=== PATIENT | male | born 1955 | race Caucasian/White ===

== ENCOUNTER 2018-02-13 10:50 | Emergency (ER) | payer BC ==
[2018-02-13] MEDS ORDERED: SODIUM CHLORIDE 0.9% 1,000 ML IV STA (11:12)
--- NOTE | 2018-02-13 11:15 | ED ---
General Adult HPI - General Chief complaint: Arrhythmia/Palpitations Stated complaint: V tach Time Seen by Provider: 02/13/18 11:00 Source: patient, RN notes reviewed Mode of arrival: wheelchair Limitations: no limitations - History of Present Illness Initial comments: Patient 62-year-old male presented to the emergency room today with a chief complaint of feeling lightheaded and dizzy and and palpitations. Patient does admit to a history of this morning feeling a little lightheaded. States that he was just doing some housework cleaning. States began feeling some palpitations. He doesn't that he has a defibrillator. Sees a layout designer through [facility]. States called the office and they had him send a interrogation of his defibrillator to them and was told that he was in V. tach. Was advised that he should come to the hospital. Patient states that the palpitations that he was feeling have improved she'll feel a little lightheaded at this time. Denies any complaints symptoms. States his defibrillator has not gone off.Patient denies any recent fever, chills, shortness of breath, chest pain, back pain, abdominal pain, nausea or vomiting, numbness or tingling , dysuria or hematuria, constipation or diarrhea, headaches or visual changes, or any other complaints. - Related Data Home Medications Medication Instructions Recorded Confirmed Amiodarone [Cordarone] 200 mg PO DAILY 02/13/18 02/13/18 Apixaban [Eliquis] 5 mg PO BID 02/13/18 02/13/18 Aspirin 81 mg PO DAILY 02/13/18 02/13/18 Carvedilol [Coreg] 6.25 mg PO BID 02/13/18 02/13/18 Cefdinir [Cefdinir] 300 mg PO Q12H 02/13/18 02/13/18 Lisinopril [Zestril] 10 mg PO DAILY 02/13/18 02/13/18 Rosuvastatin Calcium [Rosuvastatin 20 mg PO DAILY 02/13/18 02/13/18 Calcium] Spironolactone [Aldactone] 12.5 mg PO DAILY 02/13/18 02/13/18 guaiFENesin SYRUP 100MG/5ML 300 mg PO Q6H PRN 02/13/18 02/13/18 [Robitussin] Allergies Allergy/AdvReac Type Severity Reaction Status Date / Time Penicillins Allergy Unknown Verified 02/13/18 11:57 Review of Systems ROS Statement: Those systems with pertinent positive or pertinent negative responses have been documented in the HPI. ROS Other: All systems not noted in ROS Statement are negative. Past Medical History History of Any Multi-Drug Resistant Organisms: None Reported Past Surgical History: AICD Past Psychological History: No Psychological Hx Reported Smoking Status: Never smoker Past Alcohol Use History: None Reported Past Drug Use History: None Reported General Exam - General Exam Comments Initial Comments: General: The patient is awake and alert, in no distress, and does not appear acutely ill. Eye: Pupils are equal, round and reactive to light, extra-ocular movements are intact. No nystagmus. There is normal conjunctiva bilaterally. No signs of icterus. Ears, nose, mouth and throat: There are moist mucous membranes and no oral lesions. Neck: The neck is supple, there is no tenderness or JVD. Cardiovascular: There is a regular rate and rhythm. No murmur, rub or gallop is appreciated. Respiratory: Lungs are clear to auscultation, respirations are non-labored, breath sounds are equal. No wheezes, stridor, rales, or rhonchi. Musculoskeletal: Normal ROM, no tenderness. Strength 5/5. Sensation intact. Pulses equal bilaterally 2+. Neurological: A&O x 3. CN II-XII intact, There are no obvious motor or sensory deficits. Coordination appears grossly intact. Speech is normal. Skin: Skin is warm and dry and no rashes or lesions are noted. Psychiatric: Cooperative, appropriate mood & affect, normal judgment. Limitations: no limitations Course Vital Signs 02/13/18 02/13/18 02/13/18 10:53 11:19 12:50 Temperature 98.0 F Pulse Rate 90 94 Respiratory 20 20 20 Rate Blood Pressure 134/72 127/78 O2 Sat by Pulse 98 99 98 Oximetry 02/13/18 15:12 Temperature Pulse Rate 110 H Respiratory 20 Rate Blood Pressure 133/80 O2 Sat by Pulse 97 Oximetry EKG Findings - EKG Comments: EKG Findings:: Patient's initial EKG performed at 1102:. Shows sinus rhythm with occasional PVCs at 100 bpm. SD interval is 146. QRS 162. QT/QTc is 426/ 59. Rhythm consistent with nonsustained VT. Second EKG performed at 1354 shows sinus rhythm at 111 bpm. QRS is 162. QT/QTC 356/484. EKG shows runs of nonsustained V. tach Medical Decision Making - Medical Decision Making Patient 62-year-old male presented to the emergency room feeling lightheaded earlier today. Patient does admit to some heart palpitations. Patient has a history of unsustained V. tach. She recently was admitted for influenza and bronchitis had episodes of unsustained V. tach had medications changed was doing well until this morning. Patient presents here to the emergency room. Patient's been asymptomatic he states occasionally feels palpitations. Patient' s EKG has been reviewed and does show undisplaced is staying rhythm of V. tach. Patient labs been reviewed are unremarkable. Chest x-rays negative. Case discussed with on-call radiologist, Dr. Tamayo who recommends admission due to patient being symptomatic at this time. Patient states he would prefer being transferred to [facility] as this is where all of his medical history and layout designer are at. 1406: Discussed case with [facility] nurse Ramsey at this time about transfer. She is going to try to work on a direct admit that she will call his back. 1415: Case discussed with layout designer [facility] Dr. Rehman who will accept a direct admission. Patient is currently awaiting a bed at this time. 1725: [facility] has called back. They do have a room available for the patient. Patient will be transferred by EMS. - Lab Data Result diagrams: 02/13/18 11:10 02/13/18 11:10 Lab Results 02/13/18 02/13/18 02/13/18 Range/Units 11:10 11:10 11:10 WBC 7.3 (3.8-10.6) k/uL RBC 4.51 (4.30-5.90) m/uL Hgb 13.4 (13.0-17.5) gm/dL Hct 38.7 L (39.0-53.0) % MCV 85.8 (80.0-100.0) fL MCH 29.7 (25.0-35.0) pg MCHC 34.7 (31.0-37.0) g/dL RDW 12.6 (11.5-15.5) % Plt Count 361 (150-450) k/uL Neutrophils % 69 % Lymphocytes % 21 % Monocytes % 7 % Eosinophils % 1 % Basophils % 0 % Neutrophils # 5.0 (1.3-7.7) k/uL Lymphocytes # 1.5 (1.0-4.8) k/uL Monocytes # 0.5 (0-1.0) k/uL Eosinophils # 0.1 (0-0.7) k/uL Basophils # 0.0 (0-0.2) k/uL PT (9.0-12.0) sec INR (<1.2) APTT (22.0-30.0) sec Sodium 140 (137-145) mmol/L Potassium 4.4 (3.5-5.1) mmol/L Chloride 105 (98-107) mmol/L Carbon Dioxide 22 (22-30) mmol/L Anion Gap 13 mmol/L BUN 13 (9-20) mg/dL Creatinine 0.78 (0.66-1.25) mg/dL Est GFR (CKD-EPI)AfAm >90 (>60 ml/min/1.73 sqM) Est GFR (CKD-EPI)NonAf >90 (>60 ml/min/1.73 sqM) Glucose 136 H (74-99) mg/dL Calcium 9.2 (8.4-10.2) mg/dL Magnesium 1.9 (1.6-2.3) mg/dL Total Bilirubin 0.5 (0.2-1.3) mg/dL AST 21 (17-59) U/L ALT 31 (21-72) U/L Alkaline Phosphatase 55 (38-126) U/L Total Creatine Kinase 32 L (55-170) U/L CK-MB (CK-2) 0.7 (0.0-2.4) ng/mL CK-MB (CK-2) Rel Index 2.2 Troponin I <0.012 (0.000-0.034) ng/mL Total Protein 6.4 (6.3-8.2) g/dL Albumin 3.7 (3.5-5.0) g/dL 02/13/18 Range/Units 11:10 WBC (3.8-10.6) k/uL RBC (4.30-5.90) m/uL Hgb (13.0-17.5) gm/dL Hct (39.0-53.0) % MCV (80.0-100.0) fL MCH (25.0-35.0) pg MCHC (31.0-37.0) g/dL RDW (11.5-15.5) % Plt Count (150-450) k/uL Neutrophils % % Lymphocytes % % Monocytes % % Eosinophils % % Basophils % % Neutrophils # (1.3-7.7) k/uL Lymphocytes # (1.0-4.8) k/uL Monocytes # (0-1.0) k/uL Eosinophils # (0-0.7) k/uL Basophils # (0-0.2) k/uL PT 10.9 (9.0-12.0) sec INR 1.1 (<1.2) APTT 26.3 (22.0-30.0) sec Sodium (137-145) mmol/L Potassium (3.5-5.1) mmol/L Chloride (98-107) mmol/L Carbon Dioxide (22-30) mmol/L Anion Gap mmol/L BUN (9-20) mg/dL Creatinine (0.66-1.25) mg/dL Est GFR (CKD-EPI)AfAm (>60 ml/min/1.73 sqM) Est GFR (CKD-EPI)NonAf (>60 ml/min/1.73 sqM) Glucose (74-99) mg/dL Calcium (8.4-10.2) mg/dL Magnesium (1.6-2.3) mg/dL Total Bilirubin (0.2-1.3) mg/dL AST (17-59) U/L ALT (21-72) U/L Alkaline Phosphatase (38-126) U/L Total Creatine Kinase (55-170) U/L CK-MB (CK-2) (0.0-2.4) ng/mL CK-MB (CK-2) Rel Index Troponin I (0.000-0.034) ng/mL Total Protein (6.3-8.2) g/dL Albumin (3.5-5.0) g/dL Disposition Clinical Impression: Nonsustained ventricular tachycardia Disposition: OTHER INSTITUTION NOT DEFINED Condition: Stable Referrals: Umer Alanis MD [Primary Care Provider] - 1-2 days Time of Disposition: 14:23 - Out of Hospital Transfer - Req. Specs Out of Hospital Transfer - Requested Specifics: Other Emergency Center ([facility])
[2018-02-13 11:36] LABS: Basophils % (A) 0 %; Eosinophils # (A) 0.1 k/uL (0-0.7); Eosinophils % (A) 1 %; HCT 38.7 % (39.0-53.0); HGB 13.4 gm/dL (13.0-17.5); Lymphocytes # (A) 1.5 k/uL (1.0-4.8); Lymphocytes % (A) 21 %; MCH 29.7 pg (25.0-35.0); MCHC 34.7 g/dL (31.0-37.0); MCV 85.8 fL (80.0-100.0); Mean Platelet Volume 6.7; Monocytes # (A) 0.5 k/uL (0-1.0); Monocytes % (A) 7 %; Neutrophils % (A) 69 %; Platelet Count 361 k/uL (150-450); RBC 4.51 m/uL (4.30-5.90); RDW 12.6 % (11.5-15.5); WBC 7.3 k/uL (3.8-10.6)
[2018-02-13 11:37] LABS: ALT 31 U/L (21-72); AST 21 U/L (17-59); Albumin 3.7 g/dL (3.5-5.0); Alkaline Phosphatase 55 U/L (38-126); Anion Gap 13 mmol/L; Blood Urea Nitrogen 13 mg/dL (9-20); Calcium 9.2 mg/dL (8.4-10.2); Carbon Dioxide 22 mmol/L (22-30); Chloride 105 mmol/L (98-107); Glucose 136 mg/dL (74-99); Magnesium 1.9 mg/dL (1.6-2.3); Potassium 4.4 mmol/L (3.5-5.1); Sodium 140 mmol/L (137-145); Total Bilirubin 0.5 mg/dL (0.2-1.3); Total Protein 6.4 g/dL (6.3-8.2)
--- NOTE | 2018-02-13 11:38 | XR ---
EXAMINATION TYPE: XR chest 2V DATE OF EXAM: 02/13/2018 COMPARISON: NONE HISTORY: History of heart catheterization with abnormal heart rate and chest pain per order. TECHNIQUE: Frontal and lateral views of the chest are obtained. FINDINGS: There is no focal air space opacity, pleural effusion, or pneumothorax seen. The cardiac silhouette size is upper limits of normal. There is dual lead pacemaker/AICD. The osseous structures are intact. IMPRESSION: No acute cardiopulmonary process.
[2018-02-13 11:42] LABS: INR 1.1 (<1.2); Partial Thromboplastin Time 26.3 sec (22.0-30.0); Prothrombin Time 10.9 sec (9.0-12.0)
[2018-02-13 11:46] LABS: Creatine Kinase 32 U/L (55-170)
[2018-02-13 11:58] LABS: Creatine Kinase MB 0.7 ng/mL (0.0-2.4); Troponin I <0.012 ng/mL (0.000-0.034)
[2018-02-13 18:01] VITALS: BP 110/70; PULSE 71; RESP 18; TEMP 97.4
== END 2018-02-13 18:26 | disposition other institution (70) ==
LOC: EC 10:50
DX: Z79.01 Long term (current) use of anticoagulants (principal); Z79.02 Long term (current) use of antithrombotics/antiplatelets; Z79.82 Long term (current) use of aspirin; Z79.899 Other long term (current) drug therapy; Z88.0 Allergy status to penicillin; Z95.810 Presence of automatic (implantable) cardiac defibrillator; I47.2 Ventricular tachycardia
CPT/HCPCS: 36415; 71046; 80053; 82550; 82553; 83735; 84484; 85025; 85610; 85730; 93005; 96360; 96361; 99285